=== PATIENT | male | born 2000 | race Caucasian/White ===

== ENCOUNTER 2018-12-01 08:08 | Emergency (ER) | payer OTHER ==
[~2018-12-01] VITALS: Ht 177.8 cm; Wt 79.5 kg
--- NOTE | 2018-12-01 08:40 | REP ---
PA and lateral chest: There are no comparisons. The lung gage are clear. The cardiac size is normal. The preethi, mediastinum, and skeletal structures are unremarkable. Impression: Negative PA and lateral chest. Electronically Signed by Hermes Weber MD 12/01/2018 08:32 A
[2018-12-01 09:14] LABS: INFLUENZA A AMPLIFICATION NEGATIVE (NEGATIVE); INFLUENZA B AMPLIFICATION NEGATIVE (NEGATIVE)
[2018-12-01] MEDS ORDERED: PRED20TA PO (09:28)
[2018-12-01] MEDS ORDERED: predniSONE 20 MG TAB PO ONE (09:30)
[2018-12-01 09:43] VITALS: BP 121/71
== END 2018-12-01 09:46 | disposition home or self-care (01) ==
LOC: M ED 08:08
DX: J06.9 Acute upper respiratory infection, unspecified (principal); F17.210 Nicotine dependence, cigarettes, uncomplicated

== ENCOUNTER 2019-12-01 08:16 | Observation (INO) | payer OTHER ==
[~2019-12-01] VITALS: Ht 177.8 cm; Wt 77.3 kg
[~2019-12-01 08:16] MED LIST: PRED20TA PO
[2019-12-01] MEDS ORDERED: predniSONE 20 MG TAB PO ONE (08:30)
[2019-12-01] MEDS ORDERED: ALBUTEROL 90 MCG/ACT 8GM HFA INHALER INH ONE (08:30)
[2019-12-01] MEDS ORDERED: PROAAER10 INH (08:58)
[2019-12-01] MEDS ORDERED: PRED20TA PO (08:59)
--- NOTE | 2019-12-01 09:14 | REPVR ---
PROCEDURE INFORMATION: Exam: XR Chest, 1 View Exam date and time: 12/01/2019 8:22 AM Age: 19 years old Clinical indication: Cough; Additional info: Dyspnea/cough TECHNIQUE: Imaging protocol: XR of the chest Views: 1 view. COMPARISON: TN Chest, 2 view PA, Lat 12/01/2018 8:23 AM FINDINGS: Lungs: Unremarkable. No consolidation. Pleural space: Unremarkable. No pleural effusion. No pneumothorax. Heart/Mediastinum: Unremarkable. No cardiomegaly. Bones/joints: No acute bony abnormalities. Mild scoliosis. IMPRESSION: No acute abnormalities are identified. Electronically signed by: Reynold Desai On 12/01/2019 09:14:27 AM
[2019-12-01 10:36] LABS: BASO % 0.2 % (0.0-1.0); EOS # 0.1 10^3/uL (0.0-0.5); EOS % 1.1 % (0.0-3.0); HEMATOCRIT 42.6 % (42.0-52.0); LYMPH # 0.8 10^3/uL (1.5-5.0); LYMPH % 8.6 % (24.0-44.0); MEAN CORPUSCULAR HEMOGLOBIN 30.4 pg (27.0-33.0); MEAN CORPUSCULAR HGB CONC 35.2 g/dl (32.0-36.5); MEAN CORPUSCULAR VOLUME 86.2 fl (80.0-96.0); MONO # 0.5 10^3/uL (0.0-0.8); MONO % 4.9 % (0.0-5.0); NEUTROPHILS # 7.9 10^3/uL (1.5-8.5); NEUTROPHILS % 84.9 % (36.0-66.0); PLATELET COUNT, AUTOMATED 159 10^3/uL (150-450); RED BLOOD COUNT 4.94 10^6/uL (4.30-6.10); WHITE BLOOD COUNT 9.3 10^3/uL (4.0-10.0)
[2019-12-01] MEDS ORDERED: ALBUTEROL SULFATE 2.5 MG/0.5 ML INH NEB SOLN INH ONE (10:45)
[2019-12-01] MEDS ORDERED: IPRATROPIUM 0.02% SOLN 0.5MG 2.5ML NEB INH ONE (10:45)
[2019-12-01 10:57] LABS: ALBUMIN 4.1 GM/DL (3.2-5.2); ALT/SGPT 27 U/L (12-78); BILIRUBIN,TOTAL 0.6 MG/DL (0.2-1.0); BLOOD UREA NITROGEN 12 MG/DL (7-18); CARBON DIOXIDE LEVEL 27 MEQ/L (21-32); CHLORIDE LEVEL 110 MEQ/L (98-107); CREATININE FOR GFR 1.11 MG/DL (0.70-1.30); GLOMERULAR FILTRATION RATE > 60.0 (>60); GLUCOSE, FASTING 123 MG/DL (70-100); POTASSIUM SERUM 3.5 MEQ/L (3.5-5.1); SODIUM LEVEL 142 MEQ/L (136-145); TOTAL PROTEIN 7.4 GM/DL (6.4-8.2)
[2019-12-01] MEDS ORDERED: ISOVUE-370 76% 100ML VIAL As Ordered ONE (11:02)
--- NOTE | 2019-12-01 11:38 | REPVR ---
PROCEDURE INFORMATION: Exam: CT Angiography Chest With Contrast Exam date and time: 12/01/2019 10:38 AM Age: 19 years old Clinical indication: Shortness of breath; Additional info: SOB TECHNIQUE: Imaging protocol: Computed tomographic angiography of the chest with intravenous contrast. 3D rendering (Not supervised by radiologist): MIP and/or 3D reconstructed images were created by the technologist. Radiation optimization: All CT scans at this facility use at least one of these dose optimization techniques: automated exposure control; mA and/or kV adjustment per patient size (includes targeted exams where dose is matched to clinical indication); or iterative reconstruction. Contrast material: ISOVUE 370; Contrast volume: 75 ml; Contrast route: INTRAVENOUS (IV); COMPARISON: CR PORTABLE CHEST X-RAY 12/01/2019 8:53 AM FINDINGS: Pulmonary arteries: Normal. No pulmonary emboli. Aorta: Unremarkable. No aortic aneurysm. No aortic dissection. Lungs: Minimal scattered endobronchial mucous plugging. Pleural space: Unremarkable. No pneumothorax. No pleural effusion. Heart: Unremarkable. No cardiomegaly. No pericardial effusion. Lymph nodes: Mildly prominent 10 mm right hilar lymph node. Bones/joints: Unremarkable. No acute fracture. Soft tissues: Unremarkable. IMPRESSION: 1. No evidence of pulmonary embolism. 2. Mildly prominent right hilar lymph node. 3. Minimal scattered endobronchial mucous plugging. Electronically signed by: Suzanna Espana On 12/01/2019 11:37:53 AM
[2019-12-01] MEDS ORDERED: ACETAMINOPHEN TAB 650MG DOSE (2X325MG) PO PRN (12:30)
[2019-12-01 13:53] VITALS: BP 126/66
[2019-12-01 20:00] VITALS: BP 140/67
[2019-12-02 06:00] VITALS: BP 138/72
[2019-12-02 06:57] LABS: HEMATOCRIT 45.2 % (42.0-52.0); HEMOGLOBIN 16.1 g/dl (13.5-17.5); MEAN CORPUSCULAR HEMOGLOBIN 30.9 pg (27.0-33.0); MEAN CORPUSCULAR HGB CONC 35.6 g/dl (32.0-36.5); MEAN CORPUSCULAR VOLUME 86.8 fl (80.0-96.0); PLATELET COUNT, AUTOMATED 183 10^3/uL (150-450); RED BLOOD COUNT 5.21 10^6/uL (4.30-6.10); WHITE BLOOD COUNT 8.5 10^3/uL (4.0-10.0)
[2019-12-02] MEDS ORDERED: IPRATROPIUM 0.5MG/ALBUTEROL 2.5MG INH SOL UD 3ML (DUONEB) NEB PRN (07:00)
[2019-12-02] MEDS: NS 1,000 ML IV SCH ×2 (07:05→16:20)
[2019-12-02 07:18] LABS: BLOOD UREA NITROGEN 14 MG/DL (7-18); CALCIUM LEVEL 9.2 MG/DL (8.5-10.1); CARBON DIOXIDE LEVEL 24 MEQ/L (21-32); CHLORIDE LEVEL 111 MEQ/L (98-107); CREATININE FOR GFR 0.91 MG/DL (0.70-1.30); GLOMERULAR FILTRATION RATE > 60.0 (>60); GLUCOSE, FASTING 95 MG/DL (70-100); SODIUM LEVEL 143 MEQ/L (136-145)
[2019-12-02] MEDS: IPRATROPIUM 0.5MG/ALBUTEROL 2.5MG INH SOL UD 3ML (DUONEB) NEB SCH ×2 (07:28→14:27)
[2019-12-02] MEDS: ENOXAPARIN 40MG/0.4ML SYRINGE (J1650 PER 10MG) SC SCH (08:19)
[2019-12-02] MEDS: guaiFENesin SYRUP 200 MG/10 ML UDC PO PRN ×2 (12:08→20:04)
--- NOTE | 2019-12-02 13:54 | HPEPDOC ---
[facility] Medical History & Physical Date of Admission Dec 01, 2019 Date of Service: Dec 01, 2019 History and Physical CHIEF COMPLAINT: Shortness of breath HISTORY OF PRESENT ILLNESS: 19-year-old male with no past medical history presents to the hospital due to worsening shortness of breath and some wheezing for the past 1 day. Endorses a low-grade fever home. No sick contacts. No recent travel. He receives a nebulizer treatment in the emergency department and felt much better afterwards. He was able to speak in full sentences and appeared comfortable. In the ED a respiratory viral panel shows patient positive for rhinovirus. Negative for covert. In the ED patient was desaturating to the mid 80s and so he was admitted to the medical floor for observation. PAST MEDICAL HISTORY: None PAST SURGICAL HISTORY: Endorses none SOCIAL HISTORY: Doesn't smoke tobacco. Denies use of any illicit drugs. Drinks alcohol only occasionally with friends. ALLERGIES: Please see below. REVIEW OF SYSTEMS: Constitutional: No sweating or weight loss Eyes: No eye pain or acute blurred vision HENT: No complaints of headache or sore throat Cadiovascular: No Chest pain or palpitations Pulm: Per HPI. Mild cough. Some shortness of breath. Gastrointestinal: No N/V, no abdominal pain. Genitourinary: No dysuria or hematuria Musculoskeletal: No back pain or joint pain Skin: No rash or jaundice Neurological: No weakness. HOME MEDICATIONS: Please see below. PHYSICAL EXAMINATION: Constitutional: Awake and alert, in no apparent distress ENT: Sclera are clear. Mucosa is moist. Respiratory: Lungs demonstrate some mild to moderate wheezing bilaterally. No respiratory distress. No use of accessory muscles. Cardiovascular: RRR S1 and S2 are normal, no murmur Gastrointestinal: Abdomen is soft, non distended, non tender, BS present. Musculoskeletal: No edema. No joint deformities. RUE 5/5, LUE 5/5, BLE 5/5 Neurologic: No focal neurological deficit. Mental Status: A&O x3, normal affect Skin: Warm, dry LABORATORY DATA: See below. MICROBIOLOGY: Please see below. A/P 19-year-old male with no past medical history presents to the hospital due to worsening shortness of breath and some wheezing for the past 1 day. Endorses a low-grade fever home. No sick contacts. In the ED a respiratory viral panel shows patient positive for rhinovirus. Negative for covert. In the ED patient was desaturating to the mid 80s and so he was admitted to the medical floor for observation. 's been doing well and improving # URI: RVP+ enterovirus. Duonebs scheduled and PRN. Tylenol for fever. IVFs. Guaifenesin for cough. Still some wheezing and desaturating on exertion to about 88%. Will reevaluate at the end of the day if appropriate for discharge or needs to stay. # SCD Prophylaxis Lovetrinityx [facility] [place] [facility] This note was written on Nov 30. Patient was seen on Nov 29 at the time admission orders will placed. Vital Signs Vital Signs Date Time Temp Pulse Resp B/P (MAP) Pulse Ox O2 Delivery O2 Flow Rate FiO2 12/02/19 06:00 97.3 71 18 138/72 (94) 90 Room Air 12/02/19 02:58 1.0 Laboratory Data Labs 24H Laboratory Tests 2 12/01/19 10:23: Immature Granulocyte % (Auto) 0.3, Neutrophils (%) (Auto) 84.9H, Lymphocytes (%) (Auto) 8.6L, Monocytes (%) (Auto) 4.9, Eosinophils (%) (Auto) 1.1, Basophils (%) (Auto) 0.2, Neutrophils # (Auto) 7.9, Lymphocytes # (Auto) 0.8L, Monocytes # (Auto) 0.5, Eosinophils # (Auto) 0.1, Basophils # (Auto) 0.0, Nucleated Red Blood Cells % (auto) 0.0, Anion Gap 5L, Glomerular Filtration Rate > 60.0, Calcium Level 9.0, Total Bilirubin 0.6, Aspartate Amino Transf (AST/SGOT) 14, Alanine Aminotransferase (ALT/SGPT) 27, Alkaline Phosphatase 96, Total Protein 7.4, Albumin 4.1, Albumin/Globulin Ratio 1.2 12/01/19 10:36: POC pH (Misc Panel) 7.412, POC Base Excess (Misc Panel) -3.0L, POC Saturated Percent O2 (Misc) 86L, POC pO2 (Misc Panel) 50.0L, POC pCO2 (Misc Panel) 34.1L, POC HCO3 (Misc Panel) 21.7L, POC Total CO2 (Misc Panel) 23.0 12/02/19 06:43: CBC/BMP Laboratory Tests 12/01/19 10:23 Microbiology Microbiology 12/01/19 Respiratory Virus Panel (PCR) ([facility]) - Final, Complete Human Rhinovirus/Enterovirus Home Medications No Active Prescriptions or Reported Meds Allergies Coded Allergies: No Known Allergies (Unverified , 12/01/18) A-FIB/CHADSVASC A-FIB History Current/History of A-Fib/PAF?: No NATALIE LAURENT MD Dec 02, 2019 06:55
--- NOTE | 2019-12-02 13:55 | IPNPDOC ---
Text Note Date of Service The patient was seen on 12/02/19. NOTE S Patient seen and examined this morning is doing very well. No overnight events. Has improved from yesterday. Occasionally oxygen saturation drops 88% on exertion. He is currently on room air. O Constitutional: Awake and alert, in no apparent distress ENT: Sclera are clear. Mucosa is moist. Respiratory: Lungs demonstrate some mild to moderate wheezing bilaterally. No respiratory distress. No use of accessory muscles. Cardiovascular: RRR S1 and S2 are normal, no murmur Gastrointestinal: Abdomen is soft, non distended, non tender, BS present. Musculoskeletal: No edema. No joint deformities. RUE 5/5, LUE 5/5, BLE 5/5 Neurologic: No focal neurological deficit. Mental Status: A&O x3, normal affect Skin: Warm, dry A/P 19-year-old male with no past medical history presents to the hospital due to worsening shortness of breath and some wheezing for the past 1 day. Endorses a low-grade fever home. No sick contacts. In the ED a respiratory viral panel shows patient positive for rhinovirus. Negative for covert. In the ED patient was desaturating to the mid 80s and so he was admitted to the medical floor for observation. 's been doing well and improving # URI: RVP+ enterovirus. Duonebs scheduled and PRN. Tylenol for fever. IVFs. Guaifenesin for cough. Still some wheezing and desaturating on exertion to about 88%. Will reevaluate at the end of the day if appropriate for discharge or needs to stay. # SCD Prophylaxis Lovenox A [facility] Nathan COLÓN, I+O Nathan COLÓN I+O Laboratory Tests 12/01/19 10:23 12/02/19 06:43 Vital Signs Date Time Temp Pulse Resp B/P (MAP) Pulse Ox O2 Delivery O2 Flow Rate FiO2 12/02/19 06:00 97.3 71 18 138/72 (94) 90 Room Air 12/02/19 02:58 1.0 I&O- Last 24 Hours up to 6 AM 12/02/19 06:00 Intake Total 1190 ml Output Total 0 ml Balance 1190 ml NATALIE LAURENT MD Dec 02, 2019 07:28
[2019-12-02 14:00] VITALS: BP 129/72
[2019-12-02 20:00] VITALS: BP 127/74
[2019-12-02] MEDS: guaiFENesin ER 600 MG TAB PO SCH (20:04)
[2019-12-02] MEDS: NICOTINE 21MG/24HR 1 EA TRANSDERMAL TD SCH (22:38)
[2019-12-03] MEDS: IPRATROPIUM 0.5MG/ALBUTEROL 2.5MG INH SOL UD 3ML (DUONEB) NEB SCH ×3 (00:03→16:33)
[2019-12-03] MEDS: NS 1,000 ML IV SCH ×2 (00:33→09:47)
[2019-12-03 06:20] VITALS: BP 127/74
[2019-12-03 07:03] LABS: HEMATOCRIT 41.6 % (42.0-52.0); HEMOGLOBIN 14.3 g/dl (13.5-17.5); MEAN CORPUSCULAR HEMOGLOBIN 30.3 pg (27.0-33.0); MEAN CORPUSCULAR HGB CONC 34.4 g/dl (32.0-36.5); MEAN CORPUSCULAR VOLUME 88.1 fl (80.0-96.0); PLATELET COUNT, AUTOMATED 151 10^3/uL (150-450); RED BLOOD COUNT 4.72 10^6/uL (4.30-6.10); WHITE BLOOD COUNT 6.6 10^3/uL (4.0-10.0)
[2019-12-03 07:32] LABS: BLOOD UREA NITROGEN 12 MG/DL (7-18); CALCIUM LEVEL 8.6 MG/DL (8.5-10.1); CARBON DIOXIDE LEVEL 25 MEQ/L (21-32); CHLORIDE LEVEL 111 MEQ/L (98-107); CREATININE FOR GFR 0.81 MG/DL (0.70-1.30); GLOMERULAR FILTRATION RATE > 60.0 (>60); GLUCOSE, FASTING 89 MG/DL (70-100); POTASSIUM SERUM 4.5 MEQ/L (3.5-5.1); SODIUM LEVEL 141 MEQ/L (136-145)
[2019-12-03] MEDS: ENOXAPARIN 40MG/0.4ML SYRINGE (J1650 PER 10MG) SC SCH (09:00)
[2019-12-03] MEDS: guaiFENesin ER 600 MG TAB PO SCH (09:47)
[2019-12-03] MEDS: NICOTINE 21MG/24HR 1 EA TRANSDERMAL TD SCH (09:47)
[2019-12-03 14:00] VITALS: BP 124/74
--- NOTE | 2019-12-03 15:34 | IPNPDOC ---
Text Note Date of Service The patient was seen on 12/03/19. NOTE Subjective Patient was seen and examined this morning at bedside. He says he is feeling much better. His breathing is much easier and has been able to walk around his room. He still has some wheezing but overall it has improved. Objective Constitutional: Awake and alert, in no apparent distress ENT: Sclera are clear. Mucosa is moist. Respiratory: Lungs demonstrate some mild to moderate wheezing bilaterally improved from yesterday. No respiratory distress. No use of accessory muscles. Cardiovascular: RRR S1 and S2 are normal, no murmur Gastrointestinal: Abdomen is soft, non distended, non tender, BS present. Musculoskeletal: No edema. No joint deformities. RUE 5/5, LUE 5/5, BLE 5/5 Neurologic: No focal neurological deficit. Mental Status: A&O x3, normal affect Skin: Warm, dry Assessment/plan 19-year-old male with no past medical history presents to the hospital due to worsening shortness of breath and some wheezing for the past 1 day. Endorses a low-grade fever home. No sick contacts. In the ED a respiratory viral panel shows patient positive for rhinovirus. Negative for covert. In the ED patient was desaturating to the mid 80s and so he was admitted to the medical floor for observation. 's been doing well and improving. # URI: RVP+ enterovirus. Duonebs scheduled and PRN. Tylenol for fever. IVFs. Guaifenesin for cough. Still some wheezing and desaturating on exertion to about 88%. Will reevaluate at the end of the day if appropriate for discharge or needs to stay. Albuterol on discharge. As been saturating well 90-97% without needing oxygen on the latest readings. # SCD Prophylaxis Lovenox A [facility] Nathan COLÓN, I+O VSNathan I+O Laboratory Tests 12/03/19 06:29 Vital Signs Date Time Temp Pulse Resp B/P (MAP) Pulse Ox O2 Delivery O2 Flow Rate FiO2 12/03/19 14:00 98.4 77 17 124/74 (91) 93 Room Air 12/02/19 02:58 1.0 I&O- Last 24 Hours up to 6 AM 12/03/19 06:00 Intake Total 3060 ml Output Total 0 ml Balance 3060 ml NATALIE LAURENT MD Dec 03, 2019 15:34
[2019-12-03] MEDS ORDERED: PROAAER10 INH (15:36)
[2019-12-03] MEDS ORDERED: GUAI100S51 PO (15:36)
[2019-12-03] MEDS ORDERED: ACET1TAB55 PO (15:36)
[2019-12-03] MEDS ORDERED: MUCI600T31 PO (15:36)
== END 2019-12-03 17:30 | disposition home or self-care (01) ==
LOC: EDBD 08:16 → M ED 08:16 → M ED INP 08:17 → ENRESERV 12:59 → M MS5PR 13:56
PROVIDERS: ADMIT Family Medicine; ATTEND Family Medicine
DX: J06.9 Acute upper respiratory infection, unspecified (principal); B97.10 Unspecified enterovirus as the cause of diseases classified elsewhere; B97.89 Other viral agents as the cause of diseases classified elsewhere; R09.02 Hypoxemia; F17.200 Nicotine dependence, unspecified, uncomplicated
CPT/HCPCS: 36415; 36600; 71045; 71275; 80048; 80053; 82803; 83605; 84145; 85025; 85027; 87486; 87581; 87633; 87798; 94640; 96372; 99285; J1650; Q9967

== ENCOUNTER 2019-12-21 18:28 | Emergency (ER) | payer OTHER ==
[~2019-12-21] VITALS: Ht 177.8 cm; Wt 80.6 kg
[~2019-12-21 18:28] MED LIST changes: +ACET1TAB55 PO; +GUAI100S51 PO; +MUCI600T31 PO; +PROAAER10 INH
[2019-12-21 20:05] LABS: HEMATOCRIT 44.4 % (42.0-52.0); HEMOGLOBIN 15.6 g/dl (13.5-17.5); MEAN CORPUSCULAR HEMOGLOBIN 29.6 pg (27.0-33.0); MEAN CORPUSCULAR HGB CONC 35.1 g/dl (32.0-36.5); MEAN CORPUSCULAR VOLUME 84.3 fl (80.0-96.0); PLATELET COUNT, AUTOMATED 224 10^3/uL (150-450); RED BLOOD COUNT 5.27 10^6/uL (4.30-6.10); WHITE BLOOD COUNT 8.2 10^3/uL (4.0-10.0)
[2019-12-21 20:23] LABS: AMPHETAMINES LEVEL URINE NEGATIVE (NEGATIVE); BARBITURATES URINE NEGATIVE (NEGATIVE); BENZODIAZEPINES URINE NEGATIVE (NEGATIVE); CANNABINOIDS URINE NEGATIVE (NEGATIVE); COCAINE METABOLITE URINE NEGATIVE (NEGATIVE); METHADONE URINE NEGATIVE (NEGATIVE); OPIATES URINE NEGATIVE (NEGATIVE); PHENCYCLIDINE URINE NEGATIVE (NEGATIVE)
[2019-12-21 20:33] LABS: ALBUMIN 4.1 GM/DL (3.2-5.2); ALT/SGPT 26 U/L (12-78); BILIRUBIN,DIRECT 0.1 MG/DL (0.0-0.2); BILIRUBIN,TOTAL 0.4 MG/DL (0.2-1.0); BLOOD UREA NITROGEN 15 MG/DL (7-18); CALCIUM LEVEL 9.3 MG/DL (8.5-10.1); CARBON DIOXIDE LEVEL 27 MEQ/L (21-32); CHLORIDE LEVEL 109 MEQ/L (98-107); CREATININE FOR GFR 1.01 MG/DL (0.70-1.30); GLOMERULAR FILTRATION RATE > 60.0 (>60); GLUCOSE, FASTING 98 MG/DL (70-100); POTASSIUM SERUM 3.8 MEQ/L (3.5-5.1); SALICYLATE LEVEL < 1.7 MG/DL (5.0-30.0); SODIUM LEVEL 142 MEQ/L (136-145); TOTAL PROTEIN 7.5 GM/DL (6.4-8.2)
[2019-12-21 20:34] LABS: ETHYL ALCOHOL (ETHANOL) < 0.003 % (0.000-0.010)
[2019-12-21] MEDS ORDERED: PROAAER10 INH (23:18)
[2019-12-22] MEDS ORDERED: IPRATROPIUM 0.5MG/ALBUTEROL 2.5MG INH SOL UD 3ML (DUONEB) NEB ONE (06:00)
[2019-12-22 06:27] VITALS: BP 119/63
--- NOTE | 2019-12-22 19:17 | ECGEPIP ---
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
== END 2019-12-22 06:31 ==
LOC: M ED 18:28
DX: R45.851 Suicidal ideations (principal); F33.9 Major depressive disorder, recurrent, unspecified; R05 Cough; Z20.828 Contact with and (suspected) exposure to other viral communicable diseases; F17.200 Nicotine dependence, unspecified, uncomplicated; Z79.51 Long term (current) use of inhaled steroids
CPT/HCPCS: 36415; 80048; 80076; 80307; 84443; 85027; 93005; 94640; 99284; G0480; U0002

== ENCOUNTER 2021-04-25 07:51 | Emergency (ER) | payer OTHER ==
[~2021-04-25] VITALS: Ht 177.8 cm; Wt 90.9 kg
[2021-04-25] MEDS: COMBIVENT RESPIMAT 100-20MCG INHALER 4GM INH SCH ×3 (08:25→09:01)
[2021-04-25 08:51] LABS: ABG HCO3 23.9 MEQ/L (22.0-26.0); ABG PARTIAL PRESSURE CO2 40.6 mmHg (35.0-45.0); ABG PARTIAL PRESSURE O2 60.7 mmHg (75.0-100.0); ABG STANDARD HCO3 23.4 MEQ/L (22.0-26.0); ABG TOTAL CO2 25.1 MEQ/L (22.0-29.0); ABG pH (ARTERIAL) 7.387 UNITS (7.350-7.450)
[2021-04-25 09:07] LABS: BASO % 0.6 % (0.0-1.0); EOS % 15.1 % (0.0-3.0); HEMATOCRIT 46.5 % (42.0-52.0); HEMOGLOBIN 16.4 g/dl (13.5-17.5); LYMPH # 1.8 10^3/uL (1.5-5.0); LYMPH % 26.5 % (24.0-44.0); MEAN CORPUSCULAR HEMOGLOBIN 29.9 pg (27.0-33.0); MEAN CORPUSCULAR HGB CONC 35.3 g/dl (32.0-36.5); MEAN CORPUSCULAR VOLUME 84.9 fl (80.0-96.0); MONO # 0.3 10^3/uL (0.0-0.8); MONO % 4.1 % (2.0-8.0); NEUTROPHILS # 3.6 10^3/uL (1.5-8.5); NEUTROPHILS % 53.4 % (36.0-66.0); PLATELET COUNT, AUTOMATED 179 10^3/uL (150-450); RED BLOOD COUNT 5.48 10^6/uL (4.30-6.10); WHITE BLOOD COUNT 6.8 10^3/uL (4.0-10.0)
[2021-04-25 09:45] LABS: ALT/SGPT 46 U/L (12-78); BILIRUBIN,DIRECT 0.1 MG/DL (0.0-0.2); BILIRUBIN,TOTAL 0.3 MG/DL (0.2-1.0); BLOOD UREA NITROGEN 20 MG/DL (7-18); CARBON DIOXIDE LEVEL 24 MEQ/L (21-32); CHLORIDE LEVEL 110 MEQ/L (98-107); GLOMERULAR FILTRATION RATE > 60.0 (>60); GLUCOSE, FASTING 102 MG/DL (70-100); POTASSIUM SERUM 4.2 MEQ/L (3.5-5.1); SODIUM LEVEL 142 MEQ/L (136-145); TOTAL PROTEIN 7.1 GM/DL (6.4-8.2)
[2021-04-25 10:35] VITALS: O2SAT 93
[2021-04-25] MEDS ORDERED: PRED20TA PO (10:41)
[2021-04-25 10:56] VITALS: BP 125/74
== END 2021-04-25 11:22 | disposition home or self-care (01) ==
LOC: M ED 07:51
DX: J45.901 Unspecified asthma with (acute) exacerbation (principal)

== ENCOUNTER → 2021-07-26 | Outpatient (CLI) | payer OTHER | LOC: M PLALAB 11:27 | PROVIDERS: ATTEND Physician Assistant | DX: R06.00 Dyspnea, unspecified (principal) ==